=== PATIENT | female | born 1935 | race Caucasian/White ===

== ENCOUNTER 2019-01-26 12:21 | Emergency (ER) | payer MEDICARE, MEDICAID ==
[~2019-01-26] VITALS: Ht 149.9 cm; Wt 72.0 kg
[~2019-01-26 12:21] MED LIST: CHOL2000 PO; CITA10TA4 PO; DONE10TA14 PO; LEVO75TA5 PO; LISI-167 PO; NAPR-685 PO; SIMV20TA3 PO
[2019-01-26 12:42] VITALS: BP 101/62
--- NOTE | 2019-01-26 12:49 | NUR ---
HERE FOR STAPLE REMOVAL OCCIPITAL AREA - [address]. PT'S DAUGHTER IN ROOM.
== END 2019-01-26 13:14 | disposition home or self-care (01) ==
LOC: ED 13:08
DX: S01.01XD Laceration without foreign body of scalp, subsequent encounter (principal); X58.XXXD Exposure to other specified factors, subsequent encounter
CPT/HCPCS: 99281

== ENCOUNTER 2019-02-27 17:13 | Emergency (ER) | payer MEDICARE, MEDICAID ==
[~2019-02-27] VITALS: Ht 154.9 cm; Wt 72.5 kg
[2019-02-27 17:19] VITALS: BP 154/80
== END 2019-02-27 18:56 | disposition home or self-care (01) ==
LOC: ED 18:00
DX: J01.00 Acute maxillary sinusitis, unspecified (principal); J30.2 Other seasonal allergic rhinitis; I10 Essential (primary) hypertension; E78.5 Hyperlipidemia, unspecified; E03.9 Hypothyroidism, unspecified
CPT/HCPCS: 99283